=== PATIENT | female | born 1945 | race Caucasian/White ===

== ENCOUNTER → 2016-10-01 | Outpatient (CLI) | payer OTHER, BC ==
--- NOTE | 2016-10-01 16:01 | US ---
Ultrasound right breast 1502 hours. History: Density upper outer right breast at tomosynthesis imaging. Findings: Ultrasound of the upper right breast demonstrate normal dense underlying breast parenchymal tissue without solid or cystic mass. Impression: Benign findings ultrasound right breast. Correlating ultrasound with density seen at mamm ography tomosynthesis imaging, this is felt be probably benign. Six month tomosynthesis views of the right breast are recommended in MLO projection to confirm stability. BI-RADS 3 The results of this study were reviewed with the patient.
== END ==
LOC: FIMAGING 15:02
PROVIDERS: ATTEND Family Medicine
DX: Z12.39 Encounter for other screening for malignant neoplasm of breast (principal); R92.2 Inconclusive mammogram

== ENCOUNTER → 2017-02-18 | Outpatient (CLI) | payer OTHER, BC | LOC: BMCIMAGING 14:07 | PROVIDERS: ATTEND Internal Medicine Rheumatology | DX: M15.4 Erosive (osteo)arthritis (principal) ==

== ENCOUNTER → 2017-03-16 | Outpatient (CLI) | payer OTHER, BC ==
[~2017-03-16] MED LIST: KETOROLAC 30 MG/1 ML SDV ONE; ONDANSETRON 4 MG/2 ML VIAL ONE; PHENYLEPHRINE HCL 100 MCG/ML SYR ONE; PROPOFOL 200 MG/20 ML VIAL ONE
== END ==
LOC: FIMAGING 09:50
PROVIDERS: ATTEND Family Medicine
DX: R92.8 Other abnormal and inconclusive findings on diagnostic imaging of breast (principal)
CPT/HCPCS: G0206; J2704; J1885; J2370; J2405

== ENCOUNTER → 2017-09-14 | Outpatient (CLI) | payer OTHER, BC | LOC: FIMAGING 14:46 | PROVIDERS: ATTEND Family Medicine | DX: Z12.31 Encounter for screening mammogram for malignant neoplasm of breast (principal) | CPT/HCPCS: G0202 ==

== ENCOUNTER → 2017-11-08 | Outpatient (CLI) | payer OTHER, BC | LOC: BMCIMAGING 14:48 | PROVIDERS: ATTEND Podiatrist Foot & Ankle Surgery | DX: M79.671 Pain in right foot (principal); M79.672 Pain in left foot ==

== ENCOUNTER → 2018-05-27 | Outpatient (CLI) | payer OTHER, BC | LOC: FIMAGING 11:24 | PROVIDERS: ATTEND Family Medicine | DX: Z13.820 Encounter for screening for osteoporosis (principal); M81.0 Age-related osteoporosis without current pathological fracture ==

== ENCOUNTER → 2018-09-05 | Outpatient (CLI) | payer OTHER, BC | LOC: BMCIMAGING 16:04 | PROVIDERS: ATTEND Orthopaedic Surgery Hand Surgery | DX: M18.11 Unilateral primary osteoarthritis of first carpometacarpal joint, right hand (principal); M19.041 Primary osteoarthritis, right hand; M85.641 Other cyst of bone, right hand ==

== ENCOUNTER → 2018-09-15 | Outpatient (CLI) | payer OTHER, BC | LOC: FIMAGING 15:06 | PROVIDERS: ATTEND Family Medicine | DX: Z12.31 Encounter for screening mammogram for malignant neoplasm of breast (principal); Z80.3 Family history of malignant neoplasm of breast ==

== ENCOUNTER 2018-09-30 11:04 | Day surgery (SDC) | payer OTHER, BC ==
[2018-09-30] MEDS ORDERED: ceFAZolin 2 GM/DEXTROSE 100 ML IV ONE (11:16)
[2018-09-30] MEDS ORDERED: LR 1,000 ML IV ONE (11:18)
--- NOTE | 2018-09-30 11:41 | PDHPUP ---
History & Physical Update H&P update statement: This history and physical update is based on an assessment of the patient which was completed after admission or registration (within 24 hours), but prior to the surgery/procedure. H&P update: H&P reviewed & patient examined, no change in patient's condition since H&P completed
[2018-09-30] MEDS ORDERED: BUPIVACAINE 0.5% 30 ML SDV ONE (12:17)
[2018-09-30] MEDS ORDERED: NALOXONE HCL 0.4 MG/ML INJ IVP PRN (12:42)
[2018-09-30] MEDS ORDERED: HYDROmorphONE/DILAUDID 2 MG/ML INJ IVP PRN (12:42)
[2018-09-30] MEDS ORDERED: ONDANSETRON 4 MG/2 ML VIAL IVP PRN (12:42)
[2018-09-30] MEDS ORDERED: fentaNYL 100 MCG/2 ML INJ IVP PRN (12:42)
[2018-09-30] MEDS ORDERED: DEXAMETHASONE 4 MG/ML VIAL IVP PRN (12:42)
[2018-09-30] MEDS ORDERED: ALBUTEROL 3 ML DEYVIAL IH PRN (12:42)
--- NOTE | 2018-09-30 12:43 | PDANEPAE ---
ANE History of Present Illness PIP ANE Past Medical History - Cardiovascular History Hx Hypertension: No Hx Arrhythmias: No Hx Chest Pain: No Hx Coronary Artery / Peripheral Vascular Disease: No Hx CHF / Valvular Disease: No Hx Palpitations: No - Pulmonary History Hx COPD: No Hx Asthma/Reactive Airway Disease: No Hx Recent Upper Respiratory Infection: No Hx Oxygen in Use at Home: No Hx Sleep Apnea: No Sleep Apnea Screening Result - Last Documented: Negative - Neurologic History Hx Cerebrovascular Accident: No Hx Seizures: No Hx Dementia: No Neurologic History Comment: neuropathy left foot - Endocrine History Hx Diabetes: No - Renal History Hx Renal Disorders: No Renal History Comment: frequency, stress incontinence - Liver History Hx Hepatic Disorders: No - Neurological & Psychiatric Hx Hx Neurological and Psychiatric Disorders: No - Cancer History Hx Cancer: No - Congenital Disorder History Hx Congenital Disorders: No - GI History Hx Gastrointestinal Disorders: No - Other Health History Other Health History: wears glasses for reading. arthritis in hands - Chronic Pain History Chronic Pain: No - Surgical History Prior Surgeries: cataract surgery ANE Review of Systems Review of Systems: - Exercise capacity METS (RN): 4 METS ANE Patient History - Allergies Allergies/Adverse Reactions: sulfamethoxazole [From Bactrim] Allergy (Verified 09/26/18 17:03) nausea trimethoprim [From Bactrim] Allergy (Verified 09/26/18 17:03) nausea - Home Medications Home Medications: Calcium 09/30/18 [Last Taken 09/29/18] Herbals/Supplements -Info Only 09/30/18 [Last Taken 09/29/18] Magnesium 09/30/18 [Last Taken 09/29/18] Multivitamin 09/30/18 [Last Taken 09/29/18] Vitamin B Complex 09/30/18 [Last Taken 09/29/18] Vitamin D2 09/30/18 [Last Taken 09/29/18] - NPO status NPO Since - Liquids (Date): 09/30/18 NPO Since - Liquids (Time): 09:30 NPO Since - Solids (Date): 09/30/18 NPO Since - Solids (Time): 03:30 - Smoking Hx Smoking Status: Former smoker - Family Anes Hx Family Hx Anesthesia Complications: none ANE Labs/Vital Signs - Vital Signs Blood Pressure: 142/91 Heart Rate: 69 Respiratory Rate: 16 O2 Sat (%): 96 Height: 161.29 cm Weight: 61.235 kg ANE Physical Exam - Airway Neck exam: FROM Mallampati Score: Class 2 Mouth exam: normal dental/mouth exam - Pulmonary Pulmonary: clear to auscultation - Cardiovascular Cardiovascular: regular rate and rhythym - ASA Status ASA Status: II ANE Anesthesia Plan Regional Anesthesia: infraclavicular BP NB
[2018-09-30] MEDS ORDERED: MIDAZOLAM 2 MG/2 ML VIAL IVP ONE (13:13)
[2018-09-30] MEDS ORDERED: ROPIVACAINE HCL 150 MG/30 ML INJ ONE (13:18)
--- NOTE | 2018-09-30 17:18 | POSTANESTH ---
Post Anesthetic Evaluation Cardiovascular Status: Normal, Stable Respiratory Status: Normal, Stable Level of Consciousness/Mental Status: Can Participate in Eval, Alert and Oriented Pain Control: Adequate, Prn Tx Ordered Nausea/Vomiting Control: Adequate, Prn Tx Ordered Complications Possibly Related to Anesthesia: None Noted
[2018-09-30 18:05] VITALS: BP 147/93
--- NOTE | 2018-10-02 04:50 | GOP ---
DATE OF OPERATION: SURGEON: Virgilio Pza MD ANESTHESIA: Axillary block and MAC. PREOPERATIVE DIAGNOSIS: 1. 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 2. 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 POSTOPERATIVE DIAGNOSIS: PROCEDURE PERFORMED: 1. Right long finger proximal interphalangeal joint silicone replacement. 2. Right ring finger proximal interphalangeal joint silicone replacement. FINDINGS: ESTIMATED BLOOD LOSS: Less than 5 cc. INDICATIONS: The patient is a 73-year-old female with a long history of arthritis of the digits. She has severe arthritis of the above-mentioned PIP joints. She has been followed by a sleep medicine physician and has been seeing a hand therapist for some time. After many years of conservative nonsurgical management, she has persistent pain, and replacement is indicated. I discussed with her the option of replacement. We discussed the risks and benefits. The risks of the surgery include pain, bleeding, infection, inability, stiffness, weakness, implant breakage, silicone synovitis, need for further operation. She understood these risks and she wished to proceed . DESCRIPTION OF PROCEDURE: The patient was seen in the preoperative holding area. She was given the opportunity to ask me more questions. All those questions were answered and consent was signed. Surgical site was marked. She was transferred to the operative suite. Care was taken to pad all bony prominences on the gurney. Time-out was performed including surgical and anesthesia teams confirming the surgical site and procedure to be performed. Axillary block was performed prior to the procedure. Two grams of Ancef were given prior to the incision. The right upper extremity was prepped and draped in the usual sterile fashion. Esmarch was used to exsanguinate the right upper extremity and the tourniquet was inflated to 250 mmHg. I first began with the volar approach through the ring finger. I made a V-shaped, lunar-type incision over the PIP flexion crease, dissected down to the level of the flexor tendon sheath, identified both neurovascular bundles to protect them at all times. I made a rectangular-shaped flap over the A3 cassie to expose the flexor tendon sheath. I then wrapped a Zachary around the flexor tendons to then reflect them to either side, exposing the volar plates. I used a [place] blade to detach the volar plate from its proximal insertion on the proximal phalanx, reflected it distally, visualized the joint. I released the accessory collaterals. Upon release of the joint, I took care to preserve the proper collaterals. I inspected the joint. This was a severely arthritic joint with complete loss of cartilage with eburnated bone. There were large spurs in the middle phalanx that corresponded to the volar plate insertion and the central slip insertion. I did not wish to disrupt those insertions. Through this approach, I was not able to fully shotgun open the joint due to her large dorsal spurs and the severe deformity. On exposure of the joint, I first made a free-hand cut of the proximal phalanx, gained some access to the middle phalanx base, which I prepared with the bur. The same exposure was performed for the long finger. I prepared them essentially concurrently. I finished the closure and preparation of the long finger first with a #0 rasp; however, she had a very capacious middle phalanx and I felt that I could try to go up 1 size in the proximal phalanx, so I made some more room with the bur. Then, I rasped for a #1 on the proximal phalanx, and I was able to keep that rasp. I did the same on the middle phalanx.. She had full flexion with a #1 trial. I was happy with this trial. I left the trial in place and proceeded with the same preparation on the ring finger. For this 1, I trialed with the 0. I was happy with the 0. I took fluoroscopic views during the trialing and I felt that I could not go up much more in the proximal phalanx. I trialed with an 0 and again, I was happy with the flexion. I then implanted the final 0 implant in the ring finger using a no-touch technique. I did the same in the long finger. I checked the motion and stability. I was happy with the stability and the alignment on the final x-rays. I then repaired the volar plates with 4- 0 FiberWire [id number] sutures. I then partially closed the flexor tendon sheath with a 5-0 Prolene. Tourniquet was let down. Both fingers were well- perfused. Bleeding was well controlled. I closed the skin with running 4-0 nylon. Sterile dressings were applied, dorsal block splints were applied, the patient tolerated procedure well, and was taken to the PACU in stable condition. IMPLANTS USED: Integra Silicone PIP Replacement System 5.0 for ring finger, 5.1 for long finger. POSTOPERATIVE CONDITION: stable. POSTOPERATIVE PLAN: The patient already has an appointment with the hand therapist. Will begin active motion in about 3 days. /[id number]/MODL MTDD
== END 2018-09-30 18:05 | disposition home or self-care (01) ==
LOC: FSGY 11:04
PROVIDERS: ATTEND Orthopaedic Surgery Hand Surgery
PROC: 0RRW0JZ Replacement of Right Finger Phalangeal Joint with Synthetic Substitute, Open Approach (ICD-10-PCS; principal; 2018-09-30 12:45)
DX: M19.041 Primary osteoarthritis, right hand (principal)
CPT/HCPCS: J0690; J2250; J2795

== ENCOUNTER → 2018-12-16 | Outpatient (CLI) | payer OTHER, BC | LOC: BMCIMAGING 09:40 | PROVIDERS: ATTEND Orthopaedic Surgery Hand Surgery | DX: Z47.89 Encounter for other orthopedic aftercare (principal) ==

== ENCOUNTER → 2018-12-26 | Outpatient (CLI) | payer OTHER, BC | LOC: BMCIMAGING 10:29 | PROVIDERS: ATTEND Podiatrist Foot & Ankle Surgery | DX: M79.672 Pain in left foot (principal); R22.42 Localized swelling, mass and lump, left lower limb ==